=== PATIENT | female | born 1980 | race Caucasian/White ===

== ENCOUNTER → 2017-05-23 | Outpatient (REF) ==
[~2017-05-23] MED LIST: ACE3 PO; FERR325T3 PO; IBU800 PO; PNV1TABL92 PO
[2017-05-23 09:23] LABS: LDL CHOLESTEROL 94 mg/dl
== END ==
DX: Z02.9 Encounter for administrative examinations, unspecified (principal)

== ENCOUNTER → 2017-08-01 | Outpatient (CLI) | payer OTHER | LOC: LAB 16:47 | PROVIDERS: ATTEND Obstetrics & Gynecology | DX: R19.00 Intra-abdominal and pelvic swelling, mass and lump, unspecified site (principal) | CPT/HCPCS: 36415; 82105; 82670; 83615; 84702; 86304 ==

== ENCOUNTER → 2017-08-01 | Outpatient (CLI) | payer OTHER ==
--- NOTE | 2017-08-01 10:26 | RADIOLOGY IMAGING REPORT ---
FACILITY: [facility] [place] PATIENT NAME: Jacquelyn Payton : 1980 MR: [id number] V: [id number] EXAM DATE: ORDERING PHYSICIAN: LEANDRA MEDINA TECHNOLOGIST: Location: [facility] Patient: Jacquelyn Payton : 1980 Visit/Account:[id number] Date of Sevice: 08/01/2017 ABDOMEN W/O CONTRAST, MRA PELVIS W/O CONTRASR HISTORY: large abdomino-pelvic mass TECHNIQUE: Multiplanar multisequence magnetic resonance imaging of the abdomen and pelvis without an d with intravenous contrast. CONTRAST: None COMPARISON: None. FINDINGS: Visualized lung bases: Negative. Liver: Negative. Gallbladder: Negative. Bile ducts: Nondistended and grossly unremarkable. Spleen: Negative. Adrenals: Negative. Pancreas: Negative. Kidneys: Negative. GI: Negative. Vessels/spaces/nodes: Negative. Bones/soft tissues: Negative. Pelvis: There is a large cystic mass centered within the mid pelvis measuring approximately 16.6 x 8. 1 x 17.0 cm (pelvic image 39 of series 6 and image 25 of series 3). There is a thin septation superi hernandez. There appears to be a focus of fat within the superior aspect of the lesion measuring approxim ately 1.8 x 1.5 cm (image 21 of series 8). This likely arises from the left ovary which is not defin itively identified. There is abutment of the right ovary which contains a simple cyst or dominant fo llicle measuring up to 1.8 cm. Cannot completely exclude right ovarian origin. Uterus is retroverte d with probable mass effect from the cystic lesion. Otherwise negative. IMPRESSION: 1. Cystic pelvic mass with single small focus of internal fat. This is likely ovarian in etiology, favored arising from the left ovary. Differential includes cystic teratoma and serous cystadenoma. 2. Remaining unenhanced exam is unremarkable Report Dictated By: Juan Daniel Garcia MD at 08/01/2017 10:09 AM Report E-Signed By: Juan Daniel Garcia MD at 08/01/2017 10:22 AM WSN:[id number]
--- NOTE | 2017-08-01 10:26 | RADIOLOGY IMAGING REPORT ---
FACILITY: [facility] [place] PATIENT NAME: Jacquelyn Payton : 1980 MR: [id number] V: [id number] EXAM DATE: ORDERING PHYSICIAN: LEANDRA MEDINA TECHNOLOGIST: Location: [facility] Patient: Jacquelyn Payton : 1980 Visit/Account:[id number] Date of Sevice: 08/01/2017 ABDOMEN W/O CONTRAST, MRA PELVIS W/O CONTRASR HISTORY: large abdomino-pelvic mass TECHNIQUE: Multiplanar multisequence magnetic resonance imaging of the abdomen and pelvis without an d with intravenous contrast. CONTRAST: None COMPARISON: None. FINDINGS: Visualized lung bases: Negative. Liver: Negative. Gallbladder: Negative. Bile ducts: Nondistended and grossly unremarkable. Spleen: Negative. Adrenals: Negative. Pancreas: Negative. Kidneys: Negative. GI: Negative. Vessels/spaces/nodes: Negative. Bones/soft tissues: Negative. Pelvis: There is a large cystic mass centered within the mid pelvis measuring approximately 16.6 x 8. 1 x 17.0 cm (pelvic image 39 of series 6 and image 25 of series 3). There is a thin septation superi hernandez. There appears to be a focus of fat within the superior aspect of the lesion measuring approxim ately 1.8 x 1.5 cm (image 21 of series 8). This likely arises from the left ovary which is not defin itively identified. There is abutment of the right ovary which contains a simple cyst or dominant fo llicle measuring up to 1.8 cm. Cannot completely exclude right ovarian origin. Uterus is retroverte d with probable mass effect from the cystic lesion. Otherwise negative. IMPRESSION: 1. Cystic pelvic mass with single small focus of internal fat. This is likely ovarian in etiology, favored arising from the left ovary. Differential includes cystic teratoma and serous cystadenoma. 2. Remaining unenhanced exam is unremarkable Report Dictated By: Juan Daniel Garcia MD at 08/01/2017 10:09 AM Report E-Signed By: Juan Daniel Garcia MD at 08/01/2017 10:22 AM WSN:[id number]
== END ==
LOC: MRI 07:10
PROVIDERS: ATTEND Obstetrics & Gynecology
DX: N94.89 Other specified conditions associated with female genital organs and menstrual cycle (principal)
CPT/HCPCS: 72195; 74181

== ENCOUNTER 2017-08-21 01:16 | Day surgery (SDC) | payer OTHER ==
[~2017-08-21] VITALS: Ht 172.7 cm; Wt 86.6 kg
[2017-08-21 06:08] LABS: PLATELET COUNT, AUTOMATED 185 K/uL (150-450)
[2017-08-21] MEDS ORDERED: NORMOSOL R SOLN(*) 1000 ML BAG 1,000 ML IV PRN (06:30)
[2017-08-21] MEDS ORDERED: FAMOTIDINE 20 MG TAB PO ONE (06:30)
[2017-08-21] MEDS ORDERED: ceFAZolin(*) 1 GM VIAL 1 GM in NS(*) 0.9% 100 ML ADDVANT BAG 100 ML IVPB ONE (06:30)
[2017-08-21] MEDS ORDERED: MIDAZOLAM 2 MG/2 ML VIAL IVP PRN (06:30)
[2017-08-21] MEDS ORDERED: ceFAZolin(*) 2GM/D5W 50ML 50 ML IVPB ONE (06:30)
[2017-08-21] MEDS ORDERED: LIDOCAINE/SOD BICARB 8.4% SYR ID ONE (06:30)
[2017-08-21 06:35] VITALS: BP 128/83
[2017-08-21] MEDS ORDERED: BUPIV/EPI 0.25% 1:200,000 50ML INFIL ONE (06:53)
[2017-08-21] MEDS ORDERED: PROPOFOL EMUL(*) 10MG/ML 20 ML 20 ML ONE (07:05)
[2017-08-21] MEDS ORDERED: DEXAMETHASONE SOD 4 MG/ML VIAL ONE (07:05)
[2017-08-21] MEDS ORDERED: ONDANSETRON 4 MG/2 ML VIAL ONE ×2 (07:05→11:28)
[2017-08-21] MEDS ORDERED: ROCURONIUM BROM 10 MG/ML 10 ML ONE (07:05)
[2017-08-21] MEDS ORDERED: LIDOCAINE MPF 1% 5 ML VIAL ONE (07:05)
[2017-08-21] MEDS ORDERED: fentaNYL CITR 250 MCG/5 ML AMP ONE (07:05)
[2017-08-21] MEDS ORDERED: SUGAMMADEX SOD 200 MG/2 ML SDV ONE (07:05)
[2017-08-21] MEDS ORDERED: KETAMINE HCL 200 MG/20 ML MDV ONE (07:08)
[2017-08-21] MEDS ORDERED: KETOROLAC 30 MG/ML VIAL ONE (09:32)
[2017-08-21] MEDS ORDERED: LR(*) 1000 ML BAG 1,000 ML IV ONE (09:37)
--- NOTE | 2017-08-21 09:37 | Post Operative Note ---
Operative Note - CHANGE MANAGEMENT EXPERT Operative Day Date: August 21, 2017 Time: 09:35 Physicians Surgeon: Victor M Sound Controller: Stalin Anesthesia: GETA, Lau Diagnosis Pre-Op Diagnosis: Large abdominopelvic mass Post-Op Diagnosis: Same, consistent wtih dermoid cyst Procedure Findings: Large, mucinous filled cyst with hair Procedure(s): Lscope LSO with cystectomy and irrigation Specimen Removed:(Maybe N/A): Left ovary and tube Fluids Fluids: IVF: 1750cc UOP: 300cc Estimated Blood Loss: Minimal LEANDRA MEDINA MD August 21, 2017 09:36
[2017-08-21] MEDS ORDERED: IBUP800T37 PO (09:39)
[2017-08-21] MEDS ORDERED: OXYC-865 PO (09:39)
[2017-08-21] MEDS ORDERED: METOCLOPRAMIDE 10 MG/2 ML SDV IVP PRN (09:40)
--- NOTE | 2017-08-21 09:40 | Short(Outpt) Discharge Summary ---
Discharge Summary Reason for Hosp/Final Diag: (1) Status post laparoscopic surgery Hospital Course & Plan: POD#0 s/p lscope LSO. Departure Discharge to: Home, Self Care Discharge Instructions Home Meds Active Scripts Oxycodone Hcl/Acetaminophen (PERCOCET 5-325 MG TABLET) 1 Each Tablet, 1-2 TAB PO Q4H Y for pain, #30 TAB 0 Refills Prov:LEANDRA DOW MD 08/21/17 Follow up Referrals: ORTHOPEDIC ASSISTANT @ [facility] with Leandra Dow Md Diet: Regular Activity: No Heavy Lifting LEANDRA DOW MD August 21, 2017 09:40
[2017-08-21 10:42] VITALS: BP 116/78
[2017-08-21 11:02] VITALS: BP 101/70
[2017-08-21 11:12] VITALS: BP 118/88
[2017-08-21 11:14] VITALS: BP 121/79
--- NOTE | 2017-08-21 14:19 | OPERATIVE REPORT 1 ---
EVENT DATE: August 21, 2017 SURGEON: Penny Dow MD ANESTHESIOLOGIST: Tulio Lau MD ANESTHESIA: General endotracheal tube. AIRPLANE DISPATCH CLERK: Arden Gant DO PREOPERATIVE DIAGNOSIS Large abdominopelvic mass. POSTOPERATIVE DIAGNOSIS Large abdominopelvic mass with findings consistent with a dermoid cyst. FINDINGS Large mucinous filled cyst with hair throughout. PROCEDURE PERFORMED Laparoscopic left salpingo-oophorectomy with cystectomy and irrigation. SPECIMENS REMOVED Left ovary and tube. IV FLUIDS 1750 mL. URINE OUTPUT 300 mL. ESTIMATED BLOOD LOSS Minimal. INDICATIONS FOR PROCEDURE This patient is a 36-year-old G2, P2 who presents with a large cystic abdominopelvic mass. She has noticed this mass for many years, however, it appeared to be growing very slowly. An MRI was performed recently, which revealed a simple-appearing cystic mass with very minimal excrescences superiorly. Her tumor markers were normal. After discussion with the patient as well as Gynecologic Oncology, it was recommended she undergo a laparoscopic removal of this mass with drainage of the cyst intra-abdominally. Please see the history and physical for full details. She was therefore admitted for the above-said procedure. PROCEDURE The patient was properly identified and taken to the operating room. She was placed int he dorsal lithotomy position and prepped and draped in the usual fashion for a laparoscopic-assisted vaginal procedure. The bladder was drained of 300 mL of clear yellow urine. A speculum was placed to visualize the cervix , which was noted to be multiparous and without lesion. The anterior lip was grasped with an Allis clamp and placed on gentle traction. The cervix was serially dilated to 5 mm and an 8 cm JOLEEN uterine manipulator was placed. The speculum was then removed. The patient was placed in the supine position, and attention was turned to the laparoscopy. Because of the size of this mass, it was determined an entry at Ramirez's point would be most appropriate. An OG tube had been placed by Anesthesia. A 5 mm incision was made over Ramirez's point after infiltration of 0.25% Marcaine with epinephrine. Using direct visualization, a direct entry was performed with an Optiview into the intraabdominal cavity. Once this was confirmed, insufflation was obtained. Two 5 mm incisions were placed after infiltration of 0.25% Marcaine, one on the right aspect of the abdomen as well as one infraumbilically. An 11 mm port was then placed on the left aspect of the abdomen under direct visualization. Once this was achieved, pelvic washings were obtained and sent to cytology. The cyst was noted to be completely engulfing the pelvis. The superior abdomen looked within normal limits. There was no evidence of carcinomatosis, and the wall of the cyst looked very smooth. Therefore, the cyst wall was punctured slightly with a needle suction device, and fluid was attempted to be suctioned with this. However, it appeared to be too thick in order to come through this thin device. Therefore, the suction blast furnace keeper was advanced after making the incision slightly larger with a pair of laparoscopic scissors. Once this was advanced, some of the cyst fluid was able to be suctioned out. However, it was noted to be extremely thick and clumpy. There was also some hair in this, and it was mucinous. This was too thick for the suction blast furnace keeper to be able to suction out efficiently. Therefore, a 10 mm suction device was obtained and utilized after advancing the incision even larger on the cyst wall. This was much more productive, as the cyst was able to slowly be decreased in size with the suction and irrigation within the cyst. It did allow for the IP ligament and uteroovarian ligament to be visualized. Therefore, using a gyrus, the IP ligament was cauterized and transected, followed by the mesosalpinx and going across the uteroovarian ligament to completely separate this mass. Once this was achieved, the mass was further dissected open. Unfortunately, there was a decent amount of the mucinous fluid and debris that was spread throughout the abdomen during this process. However , over some time with changing of the suction tubing, the majority of the filling of the cyst was able to be removed. This allowed for the remaining tissue to be engulfed in an Endo Catch bag. This bag was then tightened and brought up to the level of the skin. The incision was extended using a combination of blunt and scissor dissection. Once this was achieved, the tissue with the left tube and ovary was able to be completely removed in the bag and passed off the table. The trocar sites were all replaced with clean trocars, and copious irrigation was performed. This did not allow for sufficient cleaning of the abdominal cavity. Therefore, multiple Ray-Tecs were passed one at a time in order to accomplish removal of the mucinous debris. Once this was completed, there was a slight amount of bleeding from the right fallopian tube fimbria. This was cauterized with the gyrus, and hemostasis was assured. Once adequate cleansing of the abdominal cavity was completed, the 11 mm trocar was removed using a Jarrod Perez device. The fascia was closed adequately with an #0-Vicryl. The other trocars were then removed. Insufflation was relieved, and the skin was closed with subcuticular sutures of #0-Monocryl followed by Dermabond. The uterine manipulator was then removed. The patient tolerated this procedure well and recovered in PACU. DANNA
[2017-08-21] MEDS ORDERED: IBUPROFEN 800 MG TAB PO SCH (17:00)
== END 2017-08-21 10:40 | disposition home or self-care (01) ==
LOC: OR 01:16
PROVIDERS: ATTEND Obstetrics & Gynecology
DX: D36.7 Benign neoplasm of other specified sites (principal)
CPT/HCPCS: 36415; 58661; 84703; 85025; 88108; 88305; J0690; J1100; J1885; J2001; J2250; J2405; J2704; J3010; J3490; J7050

== ENCOUNTER → 2018-03-20 | Outpatient (REF) ==
[~2018-03-20] MED LIST changes: +IBUP800T37 PO; +OXYC-865 PO
[2018-03-20 09:10] LABS: LDL CHOLESTEROL 99 mg/dl
== END ==
DX: Z02.9 Encounter for administrative examinations, unspecified (principal)

== ENCOUNTER → 2018-04-09 | Outpatient (CLI) | payer OTHER | LOC: LAB 14:31 | PROVIDERS: ATTEND Surgery | DX: D22.9 Melanocytic nevi, unspecified (principal) | CPT/HCPCS: 88305 ==